=== PATIENT | male | born 1995 | race Caucasian/White ===

== ENCOUNTER 2018-06-19 17:18 | Emergency (ER) | payer SELFPAY ==
[~2018-06-19] VITALS: Ht 180.3 cm; Wt 77.1 kg
[2018-06-19 17:41] VITALS: BP 123/69
[2018-06-19] MEDS ORDERED: ORPH100T PO (17:57)
[2018-06-19] MEDS ORDERED: PRED20TA PO (17:57)
[2018-06-19] MEDS ORDERED: LIDO700A39 TP (17:57)
--- NOTE | 2018-06-19 17:57 | PHYS DOC ---
Past Medical History Past Medical History: No Pertinent History Past Surgical History: Appendectomy Alcohol Use: None Drug Use: None Adult General Chief Complaint Chief Complaint: BACK PAIN - NO INJURY HPI HPI Patient is a 23 year old [f__sex] who presents with [] Review of Systems Review of Systems Constitutional: Denies fever or chills [] Eyes: Denies change in visual acuity, redness, or eye pain [] HENT: Denies nasal congestion or sore throat [] Respiratory: Denies cough or shortness of breath [] Cardiovascular: No additional information not addressed in HPI [] GI: Denies abdominal pain, nausea, vomiting, bloody stools or diarrhea [] : Denies dysuria or hematuria [] Musculoskeletal: Denies back pain or joint pain [] Integument: Denies rash or skin lesions [] Neurologic: Denies headache, focal weakness or sensory changes [] Endocrine: Denies polyuria or polydipsia [] All other systems were reviewed and found to be within normal limits, except as documented in this note. Allergies Allergies Allergies Coded Allergies Type Severity Reaction Last Updated Verified No Known Drug Allergies 06/19/18 No Physical Exam Physical Exam Constitutional: Well developed, well nourished, no acute distress, non-toxic appearance. [] HENT: Normocephalic, atraumatic, bilateral external ears normal, oropharynx moist, no oral exudates, nose normal. [] Eyes: PERRLA, EOMI, conjunctiva normal, no discharge. [] Neck: Normal range of motion, no tenderness, supple, no stridor. [] Cardiovascular:Heart rate regular rhythm, no murmur [] Lungs & Thorax: Bilateral breath sounds clear to auscultation [] Abdomen: Bowel sounds normal, soft, no tenderness, no masses, no pulsatile masses. [] Skin: Warm, dry, no erythema, no rash. [] Back: No tenderness, no CVA tenderness. [] Extremities: No tenderness, no cyanosis, no clubbing, ROM intact, no edema. [] Neurologic: Alert and oriented X 3, normal motor function, normal sensory function, no focal deficits noted. [] Psychologic: Affect normal, judgement normal, mood normal. [] Current Patient Data Vital Signs Vital Signs Date Time Temp Pulse Resp B/P (MAP) Pulse Ox O2 Delivery O2 Flow Rate FiO2 06/19/18 17:41 98.7 101 123/69 (87) 98 Room Air 98.7 EKG EKG [] Radiology/Procedures Radiology/Procedures [] Course & Med Decision Making Course & Med Decision Making Pertinent Labs and Imaging studies reviewed. (See chart for details) [] Dragon Disclaimer Dragon Disclaimer This electronic medical record was generated, in whole or in part, using a voice recognition dictation system. Departure Departure Impression: Primary Impression: Back pain Disposition: HOME, SELF-CARE Condition: STABLE Referrals: NO PCP (PCP) DALE CANTU MD Patient Instructions: Back Pain, Adult, [id number] Additional Instructions: Continue to use over the counter Tylenol and/or Ibuprofen/Aleve Scripts Lidocaine (Lidocaine) 1 Each Adh..patch 1 EACH TP BID PRN for PAIN, #6 PATCH Keep patch on for 12 hours then remove and leave off for next 12 hours. Prov: SHARATH RUIZ DO 06/19/18 Orphenadrine Citrate (ORPHENADRINE CITRATE) 100 Mg Tablet.er 1 TAB PO BID PRN for MUSCLE SPASMS for 7 Days, #14 TAB 0 Refills Prov: SHARATH RUIZ DO 06/19/18 Prednisone (PREDNISONE) 20 Mg Tablet 2 TAB PO DAILY, #8 TAB Start prescription tomorrow, 06/20/18 Prov: SHARATH RUIZ DO 06/19/18 Problem Qualifiers Primary Impression: Back pain Back pain location: low back pain Chronicity: acute Back pain laterality: bilateral Sciatica presence: unspecified whether sciatica present Qualified Codes: M54.5 - Low back pain SHARATH RUIZ DO Jun 19, 2018 17:57
[2018-06-19] MEDS ORDERED: DEXAMETHASONE 4 MG TABLET PO ONE (18:00)
== END 2018-06-19 18:16 | disposition home or self-care (01) ==
LOC: ER 17:18
DX: M54.5 Low back pain (principal); Z90.89 Acquired absence of other organs
CPT/HCPCS: 99283; J8540

== ENCOUNTER 2019-10-23 22:33 | Emergency (ER) | payer OTHER ==
[~2019-10-23] VITALS: Ht 182.9 cm; Wt 77.0 kg
[~2019-10-23 22:33] MED LIST: LIDO700A21 TP; ORPH100T PO; PRED20TA PO
[2019-10-23] MEDS ORDERED: IV NORMAL SALINE 1000ML BAG 1,000 ML IV SCH (23:00)
--- NOTE | 2019-10-23 23:24 | RAD ---
EXAM: CHEST ONE VIEW. HISTORY: Chest pain. COMPARISON: None. FINDINGS: A frontal view of the chest is obtained. There are no confluent infiltrates. There is no pneumothorax or pleural effusion. The heart is not enlarged. An azygos fissure is noted. IMPRESSION: 1. No confluent infiltrates. Electronically signed by: Tony Brown MD (10/23/2019 11:21 PM) [facility]
--- NOTE | 2019-10-23 23:45 | PHYS DOC ---
Past Medical History Past Medical History: No Pertinent History Past Surgical History: Appendectomy Smoking Status: Current Every Day Smoker Alcohol Use: Occasionally Drug Use: None General Adult EDM: Chief Complaint: CHEST PAIN HPI: HPI: Patient is a 24 year old male who presents with complaint of left upper chest tightness that started about an hour prior to his arrival to the emergency room. He states it lasted approximately 20 minutes and so thought he should come into the emergency room because he has never had it before. He denies having had any nausea, vomiting or diaphoresis. Patient states that the symptoms have since resolved. He states that symptoms were mild to moderate with no exacerbating or alleviating factors.[] Review of Systems: Review of Systems: Constitutional: Denies fever or chills. [] Respiratory: Denies cough or shortness of breath. [] Cardiovascular: Complains of chest pain now resolved. [] GI: Denies abdominal pain, nausea, vomiting, bloody stools or diarrhea. [] Integument: Denies rash. [] Neurologic: Denies headache, focal weakness or sensory changes. [] A full 10 point review of systems has been reviewed and is otherwise negative. Heart Score: Risk Factors: Risk Factors: DM, Current or recent (<one month) smoker, HTN, HLP, family history of CAD, obesity. Risk Scores: Score 0 - 3: 2.5% MACE over next 6 weeks - Discharge Home Score 4 - 6: 20.3% MACE over next 6 weeks - Admit for Clinical Observation Score 7 - 10: 72.7% MACE over next 6 weeks - Early Invasive Strategies Current Medications: Current Medications Medications (Trade) Dose Ordered Sig/[facility] Start Time Stop Time Status Last Admin Dose Admin Sodium Chloride 1,000 ml @ 1,000 mls/hr Q1H 10/23/19 23:00 10/23/19 23:59 10/23/19 23:27 1,000 MLS/HR Allergies: Allergies: Allergies Coded Allergies Type Severity Reaction Last Updated Verified No Known Drug Allergies 06/19/18 No Physical Exam: PE: Constitutional: Well developed, well nourished, no acute distress, non-toxic appearance. [] HENT: Normocephalic, atraumatic, bilateral external ears normal, oropharynx moist, no oral exudates, nose normal. [] Eyes: PERRLA, EOMI, conjunctiva normal, no discharge. [] Neck: Normal range of motion, no tenderness, supple, no stridor. [] Cardiovascular: Regular rate and rhythm[] Lungs & Thorax: Bilateral breath sounds clear to auscultation [] Abdomen: Bowel sounds normal, soft, no tenderness. [] Skin: Warm, dry, no erythema, no rash. [] Extremities: No tenderness, no cyanosis, no clubbing, ROM intact. [] Neurologic: Alert and oriented X 3, no focal deficits noted. [] Current Patient Data: Vital Signs: Vital Signs Date Time Temp Pulse Resp B/P (MAP) Pulse Ox O2 Delivery O2 Flow Rate FiO2 10/23/19 23:27 100 123/76 (92) 99 Room Air 10/23/19 22:40 98.5 16 98.5 EKG: EKG: EKG demonstrates normal sinus rhythm with rate of 97.[] Radiology/Procedures: Radiology/Procedures: [] Impression: PROCEDURE: PORTABLE CHEST 1V EXAM: CHEST ONE VIEW. HISTORY: Chest pain. COMPARISON: None. FINDINGS: A frontal view of the chest is obtained. There are no confluent infiltrates. There is no pneumothorax or pleural effusion. The heart is not enlarged. An azygos fissure is noted. IMPRESSION: 1. No confluent infiltrates. Electronically signed by: Tony Brown MD (10/23/2019 11:21 PM) [facility] Course & Med Decision Making: Course & Med Decision Making Pertinent Labs and Imaging studies reviewed. (See chart for details) [] Dragon Disclaimer: Dragon Disclaimer: This electronic medical record was generated, in whole or in part, using a voice recognition dictation system. Departure Departure Impression: Primary Impression: Chest wall pain Disposition: 01 HOME, SELF-CARE Condition: STABLE Referrals: NO PCP (PCP) Patient Instructions: Chest Wall Pain MERCED LONDON Jr. DO Oct 23, 2019 23:45
[2019-10-23 23:48] LABS: BILIRUBIN,URINE NEGATIVE (NEG); CLARITY,URINE CLEAR; COLOR,URINE YELLOW; NITRITE,URINE NEGATIVE (NEG); PROTEIN,URINE NEGATIVE (NEG-TRACE)
[2019-10-23 23:49] LABS: AMPHETAMINE/METHAMPHETAMINE NEG (NEG); BARBITURATES NEG (NEG); BENZODIAZEPINES NEG (NEG); CANNABINOIDS NEG (NEG); COCAINE NEG (NEG); METHADONE NEG (NEG); OPIATES NEG (NEG); PHENCYCLIDINE NEG (NEG)
[2019-10-24 00:01] LABS: BACTERIA,URINE 0 /HPF (0-FEW); SQUAMOUS EPITHELIAL CELL,UR OCC /LPF; WBC,URINE 0 /HPF (0-4)
[2019-10-24 01:05] LABS: BASO # 0.1 x10^3/uL (0.0-0.2); BASO % 1 % (0-3); EOS # 0.1 x10^3/uL (0.0-0.7); EOS % 1 % (0-3); HEMATOCRIT 45.1 % (39.0-53.0); HEMOGLOBIN 15.7 g/dL (13.0-17.5); LYMPH # 2.7 x10^3/uL (1.0-4.8); LYMPH % 32 % (24-48); MEAN CORPUSCULAR HEMOGLOBIN 32 pg (25-35); MEAN CORPUSCULAR HGB CONC 35 g/dL (31-37); MEAN CORPUSCULAR VOLUME 91 fL (79-100); MONO # 0.7 x10^3/uL (0.0-1.1); MONO % 8 % (0-9); NEUT # 4.9 x10^3/uL (1.8-7.7); NEUT % 58 % (31-73); PLATELET COUNT 181 x10^3/uL (140-400); RED BLOOD COUNT 4.98 x10^6/uL (4.30-5.70); RED CELL DISTRIBUTION WIDTH 12.4 % (11.5-14.5); WHITE BLOOD COUNT 8.5 x10^3/uL (4.0-11.0)
[2019-10-24 01:11] LABS: CALCIUM 8.5 mg/dL (8.5-10.1); GFR 92.6; POTASSIUM 3.5 mmol/L (3.5-5.1)
[2019-10-24 01:18] LABS: ALBUMIN 3.6 g/dL (3.4-5.0); ALBUMIN/GLOBULIN RATIO 1.1 (1.0-1.7); TOTAL BILIRUBIN 0.3 mg/dL (0.2-1.0); TOTAL PROTEIN 6.9 g/dL (6.4-8.2)
[2019-10-24 01:57] VITALS: BP 126/77
--- NOTE | 2019-10-24 02:48 | EKG ---
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
== END 2019-10-24 02:20 | disposition home or self-care (01) ==
LOC: ER 22:33
DX: R07.89 Other chest pain (principal); F17.200 Nicotine dependence, unspecified, uncomplicated; Z90.89 Acquired absence of other organs
CPT/HCPCS: 36415; 71045; 80053; 80307; 81001; 83735; 84484; 85025; 93005; 99285; J7030

== ENCOUNTER 2021-07-20 02:43 | Emergency (ER) | payer OTHER ==
[~2021-07-20] VITALS: Ht 182.9 cm; Wt 84.0 kg
[2021-07-20 03:00] VITALS: BP 127/64
--- NOTE | 2021-07-20 03:36 | PHYS DOC ---
Past Medical History Past Medical History: No Pertinent History Past Surgical History: Appendectomy Smoking Status: Current Every Day Smoker Alcohol Use: Occasionally Drug Use: None General Adult EDM: Chief Complaint: LOWER EXT PAIN HPI: HPI: Patient is a 26 year old male who presents with a left lower extremity injury. Patient states he was at work when his left lower leg was stuck between a "forklift and a palette". This occurred about two hours ago at 0100. Patient was able to bear weight on his left leg immediately after the incident. He has pain to his left lower leg, left ankle, and left foot. He has some left ankle swelling but says he has normal sensation. He denies any other trauma and otherwise denies any other symptoms. Denies other injury. Review of Systems: Review of Systems: Constitutional: Denies fever or chills Respiratory: Denies cough or shortness of breath Cardiovascular: Denies chest pain or palpitations Musculoskeletal: Reports left ankle pain and swelling, left foot pain Integument: Reports skin wound to left lower leg, redness to left lower leg Neurologic: Denies numbness or focal weakness Complete systems were reviewed and found to be within normal limits, except as documented in this note. Heart Score: C/O Chest Pain: N/A Allergies: Allergies: Allergies Coded Allergies Type Severity Reaction Last Updated Verified No Known Drug Allergies 06/19/18 No Physical Exam: PE: Constitutional: Well developed, well nourished, mild distress secondary to pain, non-toxic appearance HENT: Normocephalic, atraumatic Eyes: Conjunctiva normal, no discharge Neck: Normal range of motion, supple Lungs & Thorax: No respiratory distress, equal chest rise and fall Skin: Erythema and swelling to the left ankle, Small ecchymosis medial aspect left lower leg, Erythema and abrasions to lateral aspect left lower leg Extremities: Limited passive and active motion of left ankle, Tenderness to palpation of left lower extremity and ankle, Edema left ankle, Left foot capillary refill normal Neurologic: Alert and oriented X 3, normal sensation left foot and ankle Psychologic: Affect normal, judgment normal Current Patient Data: Vital Signs: Vital Signs Date Time Temp Pulse Resp B/P (MAP) Pulse Ox O2 Delivery O2 Flow Rate FiO2 07/20/21 03:00 99.2 109 13 127/64 (85) 98 Room Air 99.2 EKG: EKG: [] Radiology/Procedures: Radiology/Procedures: PROCEDURE: FOOT LEFT 3V EXAM: 3 views of the left foot DATE: 07/20/2021 3:33 AM INDICATION: Reason: pain / Spl. Instructions: / History: COMPARISON: No Prior FINDINGS: No acute fracture or dislocation. Small os trigonum is seen. Joint spaces are preserved without significant degenerative/proliferative change. Mild soft tissue swelling about the fifth toe. IMPRESSION: No acute fracture or dislocation. Mild soft tissue swelling about the fifth toe. Electronically signed by: Sukhwinder Barrera MD (07/20/2021 5:21 AM) [facility] PROCEDURE: TIBIA FIBULA LEFT EXAM: AP and lateral views left tibia/fibula DATE: 07/20/2021 3:33 AM INDICATION: Reason: pain s/p crush injury / Spl. Instructions: / History: . COMPARISON: No Prior FINDINGS/ IMPRESSION: Small os trigonum. No acute fracture or dislocation. Mild soft tissue swelling with lower leg. Electronically signed by: Sukhwinder Barrera MD (07/20/2021 5:19 AM) [facility] Course & Med Decision Making: Course & Med Decision Making Pertinent Imaging studies reviewed. (See chart for details) Patient presents s/p injury to left lower extremity. Ice pack was given for symptomatic relief and X-rays of left tib/fib and left foot were obtained without signs of acute fracture or dislocation. Pain medication offered which patient declined. Patient educated on RICE. Crutches and walking boot provided. No clinical signs of compartment syndrome appreciated, however given history of possible crush injury, discharge instructions were provided for patient to look for signs and symptoms and present for any concern. Patient stable for discharge with outpatient follow-up with PCP/orthopedics. Orthopedic referral provided. Discussed findings and plan with patient, who acknowledges understanding and agreement. [place] Disclaimer: Yomaira Disclaimer: This electronic medical record was generated, in whole or in part, using a voice recognition dictation system. Departure Departure Impression: Primary Impression: Left ankle sprain Qualified Codes: S93.402A - Sprain of unspecified ligament of left ankle, initial encounter Additional Impression: Contusion of foot, left Qualified Codes: S90.32XA - Contusion of left foot, initial encounter Disposition: HOME / SELF CARE / HOMELESS Condition: STABLE Referrals: NO PCP (PCP) SHERRI AGUILAR MD Patient Instructions: Ankle Sprain, [id number], Compartment Syndrome, Crutch Use, [id number] Additional Instructions: Ice area of discomfort 20 minutes on then leave off for next 20 minutes. Repeat several times daily for the next few days. Do not bear weight for next few days. After a few days of using crutches may bear weight with walking boot as tolerated. Use [id number] ibuprofen and or Tylenol for pain or discomfort. Return for any concern for compartment syndrome (instructions attached) SHARATH RUIZ DO Jul 20, 2021 03:35
--- NOTE | 2021-07-20 05:22 | RAD ---
EXAM: AP and lateral views left tibia/fibula DATE: 07/20/2021 3:33 AM INDICATION: Reason: pain s/p crush injury / Spl. Instructions: / History: . COMPARISON: No Prior FINDINGS/ IMPRESSION: Small os trigonum. No acute fracture or dislocation. Mild soft tissue swelling with lower leg. Electronically signed by: Sukhwinder Barrera MD (07/20/2021 5:19 AM) [facility]
--- NOTE | 2021-07-20 05:24 | RAD ---
EXAM: 3 views of the left foot DATE: 07/20/2021 3:33 AM INDICATION: Reason: pain / Spl. Instructions: / History: COMPARISON: No Prior FINDINGS: No acute fracture or dislocation. Small os trigonum is seen. Joint spaces are preserved without signi ficant degenerative/proliferative change. Mild soft tissue swelling about the fifth toe. IMPRESSION: No acute fracture or dislocation. Mild soft tissue swelling about the fifth toe. Electronically signed by: Sukhwinder Barrera MD (07/20/2021 5:21 AM) [facility]
== END 2021-07-20 04:50 | disposition home or self-care (01) ==
LOC: ER 02:43
DX: S93.402A Sprain of unspecified ligament of left ankle, initial encounter (principal); S90.32XA Contusion of left foot, initial encounter; F17.200 Nicotine dependence, unspecified, uncomplicated; Z90.89 Acquired absence of other organs; X50.9XXA Other and unspecified overexertion or strenuous movements or postures, initial encounter; Y93.89 Activity, other specified; Y92.89 Other specified places as the place of occurrence of the external cause; Y99.8 Other external cause status
CPT/HCPCS: 73590; 73630; 99284